=== PATIENT | male | born 1995 | race Caucasian/White ===

== ENCOUNTER 2017-08-25 13:08 | Emergency (ER) | payer OTHER ==
[~2017-08-25] VITALS: Ht 170.2 cm; Wt 86.2 kg
[2017-08-25 14:06] VITALS: BP 109/77
[2017-08-25] MEDS ORDERED: IBUPROFEN 600 MG TABLET PO ONE (14:30)
== END 2017-08-25 15:52 | disposition home or self-care (01) ==
LOC: ER 13:12
DX: S60.221A Contusion of right hand, initial encounter (principal); W22.09XA Striking against other stationary object, initial encounter; Y93.01 Activity, walking, marching and hiking; Y92.89 Other specified places as the place of occurrence of the external cause; Y99.8 Other external cause status
CPT/HCPCS: 73130-TC; A4606; Z7610